=== PATIENT | male | born 1955 | race Two or more races ===

== ENCOUNTER 2021-05-30 04:55 | Day surgery (SDC) | payer OTHER ==
[~2021-05-30 04:55] MED LIST: GLIPIZIDE XL10 MG PO; JANUVIA25 MG PO; RAYOS5 MG PO; SYNTHROID88 MCG PO; VALSARTAN160 MG PO
== END 2021-05-30 18:06 | disposition home or self-care (01) ==
LOC: CIR.AMB 04:55
PROVIDERS: ATTEND Orthopaedic Surgery Hand Surgery
DX: G56.00 Carpal tunnel syndrome, unspecified upper limb (principal); M10.9 Gout, unspecified; I10 Essential (primary) hypertension; E78.5 Hyperlipidemia, unspecified; Z79.84 Long term (current) use of oral hypoglycemic drugs; E11.9 Type 2 diabetes mellitus without complications; R22.32 Localized swelling, mass and lump, left upper limb

== ENCOUNTER 2021-10-17 05:45 | Day surgery (SDC) | payer OTHER ==
[~2021-10-17] VITALS: Ht 160 cm; Wt 70.8 kg
== END 2021-10-17 17:55 | disposition home or self-care (01) ==
LOC: CIR.AMB 05:45
PROVIDERS: ATTEND Orthopaedic Surgery Hand Surgery
DX: M1A.0221 Idiopathic chronic gout, left elbow, with tophus (tophi) (principal); Z20.822 Contact with and (suspected) exposure to COVID-19; N18.9 Chronic kidney disease, unspecified; E11.9 Type 2 diabetes mellitus without complications; M19.90 Unspecified osteoarthritis, unspecified site; Z79.84 Long term (current) use of oral hypoglycemic drugs

== ENCOUNTER 2024-10-16 07:15 | Inpatient (IN) | payer OTHER ==
[~2024-10-16] VITALS: Ht 91.4 cm; Wt 67.1 kg
[2024-10-19 06:51] LABS: BASO % 0.3 % (0.1-1.2); EOS # 0.88 (0.04-0.54); EOS % 9.3 % (0.7-7.0); LYMPH # 2.88 (1.18-3.74); LYMPH % 30.5 % (19.3-53.1); MEAN PLATELET VOLUME 10.20 fl (9.4-12.4); MONO # 0.80 (0.24-0.82); MONO % 8.5 % (4.7-12.5); NEUT # 4.82 (1.56-6.13); NEUT % 51.0 % (34.0-71.1); RED CELL DISTRIBUTION WIDTH 14.6 % (11.6-14.4)
[2024-10-19 06:54] LABS: URINE APPEARANCE Clear; URINE BILIRRUBIN Negative (NEGATIVE); URINE BLOOD Negative; URINE COLOR Yellow; URINE KETONE Trace (NEGATIVE); URINE LEUKOCYTE Negative; URINE NITRATE Negative; URINE PROTEIN 30 (NEGATIVE); URINE UROBILINOGEN 0.2 E.U./dl
[2024-10-19 06:55] LABS: URINE BACTERIA 10.7 uL (0.0-1933); URINE EPITHELIAL CELLS 2.7 uL (0.0-38.8); URINE WBC 7.6 uL (0.0-23.2)
[2024-10-19 07:08] LABS: URINE CAST 0.73 uL (0.0-1.40); URINE GLUCOSE 500 MG/DL (NEGATIVE); URINE RBC 1.4 uL (0.0-20.8)
[2024-10-19 07:09] LABS: COVID-19 AG NEGATIVE (NEGATIVE); INR 1.07
[2024-10-19] MEDS ORDERED: HYDRALAZINE HCL25 MG PO (07:26)
[2024-10-19] MEDS ORDERED: HORIZANT300 MG PO (07:26)
[2024-10-19] MEDS ORDERED: FENOFIBRATE150 MG (07:26)
[2024-10-19] MEDS ORDERED: OZEMPIC0.25 MG/02 SQ (07:27)
[2024-10-19] MEDS ORDERED: FARXIGA10 MG PO (07:27)
[2024-10-19 07:32] LABS: BUN CREA RATIO 15.0 (7.0-25.0); CREATININE SERUM 3.02 mg/dL (0.70-1.30); GFR 20.69; GLUCOSE FASTING 89.0 mg/dL (65-100); OSMOLALITY SERUM 293.0 MOSM/KG (275-295)
[2024-10-19 10:50] LABS: RH POSITIVE
[2024-10-23] MEDS ORDERED: ENOXAPARIN SODIUM 40 MG/0.4 ML SYRINGE SUBCUTANEO ONE ×2 (09:30→14:45)
[2024-10-23] MEDS ORDERED: CEFAZOLIN SODIUM 1,000 MG VIAL IV SCH ×3 (09:30→17:00)
[2024-10-23] MEDS ORDERED: ONDANSETRON HCL 2 MG/ML VIAL IV PRN (14:15)
[2024-10-23] MEDS ORDERED: MORPHINE SULFATE 2 MG/ML CARTRIDGE IV PRN (14:15)
[2024-10-23] MEDS ORDERED: METHYLPREDNISOLONE SOD SUCC 40 MG VIAL IV STA (14:18)
[2024-10-23] MEDS ORDERED: 0.9 % SODIUM CHLORIDE 1,000 ML IV SCH (14:30)
[2024-10-23] MEDS ORDERED: INSULIN LISPRO 1,000 UNIT/10 ML UNITS SUBCUTANEO PRN (14:30)
[2024-10-23] MEDS ORDERED: DEXTROSE 50 % IN WATER 0.5 G/ML VIAL IV PRN (14:30)
[2024-10-23] MEDS ORDERED: METHYLENE BLUE 10MG/ML 10 ML AMPUL IV ONE (14:45)
[2024-10-23] MEDS ORDERED: MANNITOL 0.2 GM/ML (500ML) IV.SOLN IV ONE (14:45)
[2024-10-23 15:01] LABS: BASO % 0.2 % (0.1-1.2); EOS # 0.43 (0.04-0.54); EOS % 4.0 % (0.7-7.0); LYMPH # 2.14 (1.18-3.74); LYMPH % 19.8 % (19.3-53.1); MEAN PLATELET VOLUME 9.60 fl (9.4-12.4); MONO # 0.70 (0.24-0.82); MONO % 6.5 % (4.7-12.5); NEUT # 7.45 (1.56-6.13); NEUT % 68.9 % (34.0-71.1); RED CELL DISTRIBUTION WIDTH 14.2 % (11.6-14.4)
[2024-10-23] MEDS ORDERED: MORPHINE SULFATE 4 MG/ML VIAL IV ONE (15:25)
[2024-10-23 15:32] LABS: BUN CREA RATIO 12.0 (7.0-25.0); CREATININE SERUM 2.75 mg/dL (0.70-1.30); GFR 23.05; GLUCOSE FASTING 143.0 mg/dL (65-100); OSMOLALITY SERUM 286.0 MOSM/KG (275-295)
[2024-10-23] MEDS ORDERED: SODIUM POLYSTYRENE SULFONATE 30G/8 TSP PO SCH (16:00)
[2024-10-23] MEDS ORDERED: DOCUSATE SODIUM 100MG CAP PO SCH (17:00)
[2024-10-23] MEDS ORDERED: SIMETHICONE 125 MG CAPSULE PO SCH (17:00)
[2024-10-23 17:33] VITALS: BP 103/62; O2SAT 96
[2024-10-23 22:08] LABS: BASO % 0.0 % (0.1-1.2); EOS # 0.01 (0.04-0.54); EOS % 0.1 % (0.7-7.0); LYMPH # 0.39 (1.18-3.74); LYMPH % 4.7 % (19.3-53.1); MEAN PLATELET VOLUME 9.50 fl (9.4-12.4); MONO # 0.23 (0.24-0.82); MONO % 2.8 % (4.7-12.5); NEUT # 7.60 (1.56-6.13); NEUT % 92.0 % (34.0-71.1); RED CELL DISTRIBUTION WIDTH 13.9 % (11.6-14.4)
[2024-10-23 22:34] LABS: BUN CREA RATIO 13.0 (7.0-25.0); CREATININE SERUM 2.39 mg/dL (0.70-1.30); GFR 27.11; GLUCOSE FASTING 158.0 mg/dL (65-100); OSMOLALITY SERUM 293.0 MOSM/KG (275-295)
[2024-10-24 01:29] VITALS: BP 120/79; O2SAT 99
[2024-10-24 01:30] VITALS: BP 120/79; O2SAT 99
[2024-10-24] MEDS ORDERED: LEVOTHYROXINE SODIUM 88 MCG TABLET PO SCH (06:00)
[2024-10-24 08:00] VITALS: BP 107/59; O2SAT 97
[2024-10-24] MEDS ORDERED: PREDNISONE 20 MG TABLET PO SCH (09:00)
[2024-10-24 12:57] LABS: BUN CREA RATIO 12.0 (7.0-25.0); CREATININE SERUM 2.69 mg/dL (0.70-1.30); GFR 23.65; GLUCOSE FASTING 111.0 mg/dL (65-100); OSMOLALITY SERUM 289.0 MOSM/KG (275-295)
[2024-10-24 16:00] VITALS: BP 133/70; O2SAT 97
[2024-10-24] MEDS ORDERED: SODIUM POLYSTYRENE SULFONATE 30G/8 TSP PO SCH (18:00)
[2024-10-24] MEDS ORDERED: CEFTRIAXONE SODIUM 1,000 MG VIAL IV SCH (18:00)
[2024-10-24] MEDS ORDERED: ACETAMINOPHEN WITH CODEINE 1 UDTAB TABLET PO PRN (18:15)
[2024-10-24] MEDS ORDERED: MELATONIN 5 MG TABLET PO SCH (21:00)
[2024-10-25 01:14] VITALS: BP 137/58; O2SAT 96
[2024-10-25] MEDS ORDERED: LEVOTHYROXINE SODIUM 88 MCG TABLET PO SCH (06:00)
[2024-10-25 08:00] VITALS: BP 129/54; O2SAT 96
[2024-10-25 08:06] LABS: BUN CREA RATIO 14.0 (7.0-25.0); CREATININE SERUM 2.37 mg/dL (0.70-1.30); GFR 27.37; GLUCOSE FASTING 112.0 mg/dL (65-100); OSMOLALITY SERUM 289.0 MOSM/KG (275-295)
[2024-10-25 10:07] LABS: BASO % 0.2 % (0.1-1.2); EOS # 0.05 (0.04-0.54); EOS % 0.6 % (0.7-7.0); LYMPH # 0.76 (1.18-3.74); LYMPH % 9.2 % (19.3-53.1); MEAN PLATELET VOLUME 9.80 fl (9.4-12.4); MONO # 0.60 (0.24-0.82); MONO % 7.3 % (4.7-12.5); NEUT # 6.79 (1.56-6.13); NEUT % 82.3 % (34.0-71.1); RED CELL DISTRIBUTION WIDTH 14.3 % (11.6-14.4)
[2024-10-25] MEDS ORDERED: SODIUM CHLORIDE 0.45 % 1,000 ML IV SCH (12:24)
[2024-10-25 16:00] VITALS: BP 155/90; O2SAT 97
[2024-10-25] MEDS ORDERED: CEFTRIAXONE SODIUM 1,000 MG VIAL IV SCH (21:00)
[2024-10-26 00:51] VITALS: BP 128/60; O2SAT 97
[2024-10-26 07:10] LABS: BASO % 0.1 % (0.1-1.2); EOS # 0.31 (0.04-0.54); EOS % 4.1 % (0.7-7.0); LYMPH # 1.57 (1.18-3.74); LYMPH % 20.8 % (19.3-53.1); MEAN PLATELET VOLUME 11.00 fl (9.4-12.4); MONO # 0.44 (0.24-0.82); MONO % 5.8 % (4.7-12.5); NEUT # 5.18 (1.56-6.13); NEUT % 68.8 % (34.0-71.1); RED CELL DISTRIBUTION WIDTH 14.0 % (11.6-14.4)
[2024-10-26 08:57] LABS: BUN CREA RATIO 12.0 (7.0-25.0); CREATININE SERUM 2.31 mg/dL (0.70-1.30); GFR 28.19; GLUCOSE FASTING 64.0 mg/dL (65-100); OSMOLALITY SERUM 284.0 MOSM/KG (275-295)
[2024-10-26] MEDS ORDERED: POLYETHYLENE GLYCOL 3350 17 GM BLIST.PACK PO SCH (09:00)
[2024-10-26] MEDS ORDERED: BISACODYL 10 MG/SUPP.RECT SUPP.RECT RECTAL SCH (09:00)
[2024-10-26 09:40] VITALS: BP 175/69; O2SAT 100
[2024-10-26 13:10] VITALS: BP 146/68; O2SAT 99
[2024-10-26 16:00] VITALS: BP 132/75; O2SAT 97
[2024-10-27 01:52] VITALS: BP 123/69; O2SAT 98
[2024-10-27 08:00] VITALS: BP 119/70; O2SAT 99
[2024-10-27] MEDS ORDERED: ACETAMINOPHEN WITH CODEINE 1 UDTAB TABLET PO ONE (08:45)
== END 2024-10-27 09:57 | disposition home or self-care (01) | DRG 658 ==
LOC: SURH 10-23 07:00 → O/R 10-23 08:55 → SURH 10-23 15:57
PROVIDERS: ADMIT Urology; ATTEND Urology
PROC: 0TB00ZZ Excision of Right Kidney, Open Approach (ICD-10-PCS; principal; 2024-10-23 07:00)
PROC: 30233N1 Transfusion of Nonautologous Red Blood Cells into Peripheral Vein, Percutaneous Approach (ICD-10-PCS; 2024-10-24)
DX: C64.1 Malignant neoplasm of right kidney, except renal pelvis (principal)